=== PATIENT | male | born 1995 | race Caucasian/White ===

== ENCOUNTER 2017-04-07 12:53 | Emergency (ER) | payer SELFPAY ==
[~2017-04-07] VITALS: Ht 180.3 cm; Wt 99.0 kg
[~2017-04-07 12:53] MED LIST: CEPH-443 PO; IBUP-1542 PO; [UNRECOGNIZED DRUG - CODE]
[2017-04-07 13:20] VITALS: Ht 180.3 cm; Wt 99.0 kg
[2017-04-07] MEDS ORDERED: HYDROCODONE/APAP (5/325) TAB PO ONE (16:00)
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
[2017-04-07] MEDS ORDERED: TRAM50TA2 PO (17:03)
[2017-04-07] MEDS ORDERED: NAPR-260 PO (17:03)
[2017-04-07] MEDS ORDERED: CYCL-319 PO (17:04)
== END 2017-04-07 17:43 | disposition home or self-care (01) ==
LOC: FTE 12:53
DX: M54.2 Cervicalgia (principal); R51 Headache; R07.81 Pleurodynia
CPT/HCPCS: 70450; 71010; 71100; 72040